=== PATIENT | female | born 1975 | race Caucasian/White ===

== ENCOUNTER 2017-09-18 07:27 | Outpatient (CLI) | payer OTHER | END 2017-09-18 07:41 | disposition home or self-care (01) | LOC: LAB 07:27 | DX: N30.11 Interstitial cystitis (chronic) with hematuria (principal) ==

== ENCOUNTER 2017-09-18 08:15 | Outpatient (CLI) | payer OTHER | END 2017-09-18 10:29 | disposition home or self-care (01) | LOC: SONOGRAMA 08:15 | DX: Z12.31 Encounter for screening mammogram for malignant neoplasm of breast (principal); N60.11 Diffuse cystic mastopathy of right breast ==

== ENCOUNTER 2022-01-09 07:05 | Day surgery (SDC) | payer OTHER | END 2022-01-09 15:30 | disposition home or self-care (01) | LOC: CIR.AMB 07:05 | PROVIDERS: ATTEND Obstetrics & Gynecology | DX: N84.0 Polyp of corpus uteri (principal); F17.210 Nicotine dependence, cigarettes, uncomplicated; Z71.6 Tobacco abuse counseling ==

== ENCOUNTER 2024-05-06 08:07 | Outpatient (CLI) | payer OTHER | END 2024-05-06 08:30 | disposition home or self-care (01) | LOC: MAMO-SONO 08:07 | PROVIDERS: ATTEND Obstetrics & Gynecology | DX: N60.11 Diffuse cystic mastopathy of right breast (principal) ==

== ENCOUNTER 2025-08-09 08:24 | Outpatient (CLI) | payer OTHER | END 2025-08-09 08:27 | disposition home or self-care (01) | LOC: MAMO-SONO 08:24 | PROVIDERS: ATTEND General Practice | DX: N64.4 Mastodynia (principal) ==